=== PATIENT | female | born 1980 | race Caucasian/White ===

== ENCOUNTER 2017-11-19 20:24 | Emergency (ER) | payer OTHER ==
[2017-11-19] MEDS ORDERED: Sulfameth/Trimethoprim DS 800-160mg TAB ONE (21:04)
== END 2017-11-19 21:08 | disposition home or self-care (01) ==
LOC: NAV ERS 20:24
DX: L03.115 Cellulitis of right lower limb (principal)
CPT/HCPCS: 99283